=== PATIENT | male | born 1985 | race Hispanic/Latino ===

== ENCOUNTER → 2017-04-05 | Outpatient (CLI) | payer OTHER ==
[~2017-04-05] MED LIST: ISOVUE-370 76% 100ML VIAL (Q9967) As Ordered ONE
--- NOTE | 2017-04-06 05:57 | REP ---
Clinical: Hematuria. Technique: Axial precontrast, contrast enhanced, and delayed images of the abdomen and pelvis using 100 ml Isovue 370 intravenous contrast material with coronal and sagittal re-formations. Findings: While there is no hydronephrosis, perinephric stranding, intrarenal or definite obstructing ureteral calculus, a very subtle 1 mm calculus in the distal right ureter (image 123) cannot be excluded and should be correlated with physical examination. The remainder of the urinary tract system in all phases of enhancement including the collecting system on delayed imaging appears normal. Liver, spleen, pancreas, gallbladder, and bilateral adrenal glands are normal. The enteric system is without obstruction or acute inflammatory process. Normal terminal ileum and appendix are identified in the right lower quadrant. Pelvis demonstrates normal prostate/seminal vesicles. No pelvic fluid or ascites. No adenopathy. Abdominal aorta and vasculature normal. Lung bases clear. Impression: 1. Cannot exclude a punctate, 1 mm calculus in the distal right ureter. Otherwise normal urinary tract system. 2. No further acute intra-abdominal or pelvic pathology appreciated. Signed by Sav Goznales MD 04/06/2017 05:50 A
== END ==
LOC: M RAD 14:31
PROVIDERS: ATTEND Thoracic Surgery (Cardiothoracic Vascular Surgery)
DX: R31.9 Hematuria, unspecified (principal); N20.1 Calculus of ureter
CPT/HCPCS: 74178; Q9967